=== PATIENT | male | born 2000 | race Two or more races ===

== ENCOUNTER 2024-02-21 06:05 | Emergency (ER) | payer MEDICAID ==
[~2024-02-21] VITALS: Ht 177.8 cm; Wt 85.1 kg
[2024-02-21 06:13] VITALS: TEMP 98.5; O2SAT 99
[2024-02-21 07:03] LABS: CHLORIDE 100 mEq/L (98-107); POTASSIUM 3.8 mEq/L (3.5-5.1); SODIUM 135 mEq/L (136-145)
[2024-02-21 07:04] LABS: CARBON DIOXIDE 29 mEq/L (21-32)
[2024-02-21 07:05] LABS: CALCIUM 10.5 mg/dL (8.7-10.4)
[2024-02-21 07:08] LABS: HEMATOCRIT 45.9 % (42.0-52.0); HEMOGLOBIN 15.2 g/dL (14.0-18.0); MEAN CORPUSCULAR HEMOGLOBIN 28.6 pg (28.0-32.0); MEAN CORPUSCULAR HGB CONC 33.2 g/dL (31.0-37.0); MEAN CORPUSCULAR VOLUME 86.4 fL (80.0-94.0); PLATELET 215 x1000/uL (130-400); RED BLOOD CELL COUNT 5.32 mill/uL (4.7-6.1); RED CELL DISTRIBUTION WIDTH 13.3 % (11.6-14.6); WHITE BLOOD COUNT 7.1 x1000/uL (4.5-11.0)
[2024-02-21 07:09] LABS: GLUCOSE 92 mg/dL (70-105); UREA NITROGEN BLOOD 11 mg/dL (9-23)
[2024-02-21 07:11] LABS: TROPONIN I HIGH SENSITIVITY 51 ng/L (3.0-53)
[2024-02-21] MEDS ORDERED: TOPUD PO (08:55)
[2024-02-21 09:06] VITALS: BP 121/69; PULSE 56; RESP 16
== END 2024-02-21 09:08 | disposition home or self-care (01) ==
LOC: ER 06:05
DX: R07.9 Chest pain, unspecified (principal)
CPT/HCPCS: 36415; 71045; 80048; 84484; 85027; 85379; 93005; 99285